=== PATIENT | female | born 1995 | race Caucasian/White ===

== ENCOUNTER 2017-10-19 20:31 | Emergency (ER) | payer OTHER ==
[~2017-10-19] VITALS: Ht 160 cm; Wt 59.0 kg
[2017-10-19 22:20] VITALS: BP 108/60
== END 2017-10-19 22:20 | disposition home or self-care (01) ==
LOC: ER 20:31
DX: O26.891 Other specified pregnancy related conditions, first trimester (principal); M79.671 Pain in right foot; M79.89 Other specified soft tissue disorders; F17.210 Nicotine dependence, cigarettes, uncomplicated; Z3A.00 Weeks of gestation of pregnancy not specified